=== PATIENT | female | born 1960 | race Caucasian/White ===

== ENCOUNTER 2022-09-07 13:35 | Outpatient (CLI) | payer OTHER, SELFPAY ==
--- NOTE | 2022-09-07 17:04 | WPDPFTINT ---
PFT Procedure Performed PFT Procedure Performed Plethysmography (Lung Vol) Diffusing Cap (DLCO) Flow Vol Loop Spirometry w/o Bronchodil PFT Interpretation This is a pulmonary function test with spirometry, plethysmography and diffusing capacity. The test was performed and results interpreted in accordance with the 2019 and 2005 ATS/ERS Task Force guidelines respectively using the Global Lung Function Initiative-2012 reference equations. Patient demonstrated good effort and cooperation. Reproducibility criteria were met. The quality of the spirometry maneuver was Grade A. Findings: Spirometry: The contour the inspiratory and expiratory flow tracing are normal. The FVC is 3.21 L, 99% predicted. The FEV1 is 2.28 L, 89% predicted. The FEV1: FVC ratio 71%. Plethysmography: The total lung capacity is 6.73 L, 129% predicted. The functional residual capacity is 4.14 L, 141% predicted. The residual volume is 2.88 L, 140% predicted. The residual volume: Total lung capacity ratio is 43%. Diffusing capacity: The diffusing capacity unadjusted for hemoglobin and carboxyhemoglobin is 17.7, 81% predicted. Diffusing capacity adjusted for alveolar volume is 3.26, 74% predicted. Impression: The spirometry is normal without evidence of an obstructive abnormality. The total lung capacity, functional residual capacity and residual volume are increased with a normal residual volume:Total lung capacity ratio suggesting large lungs. The diffusing capacity is normal. There are no prior studies for comparison
== END 2022-09-07 13:36 | disposition home or self-care (01) ==
LOC: ANHPFT 13:36
PROVIDERS: PCP Internal Medicine; Visit Provider Internal Medicine Pulmonary Disease
DX: R06.09 Other forms of dyspnea (principal); T78.40XA Allergy, unspecified, initial encounter; D89.9 Disorder involving the immune mechanism, unspecified; R05.9 Cough, unspecified
CPT/HCPCS: 94375; 94726; 94729

== ENCOUNTER 2022-10-11 19:24 | Emergency (ER) | payer OTHER, SELFPAY ==
[2022-10-11 19:30] VITALS: BP 126/81; PULSE 75; RESP 14; TEMP 37.5; O2SAT 92
--- NOTE | 2022-10-11 19:31 | ECG_ITS ---
Measurements Intervals [place] Rate: 104 P: 56 VA: 148 QRS: -34 QRSD: 89 T: 37 QT: 329 QTc: 434 Interpretive Statements SINUS TACHYCARDIA LEFT AXIS DEVIATION BORDERLINE ST-T WAVE ABNORMALITY- INFERIOR LEADS BASELINE ARTIFACT- I, III, AVR BORDERLINE ECG NO PREVIOUS ECG AVAILABLE FOR COMPARISON Electronically Signed On 10-11-2022 21:15:58 CDT by Dilshad Hadley D.O.
--- NOTE | 2022-10-11 21:25 | PC.NURSE ---
Patient asked television writer to recheck her temperature. Patient temperature was 99.1. Patient decided she wants to leave and not wait to be seen. Patient alert and ambulatory out ED exit.
== END 2022-10-11 21:44 | disposition left against medical advice (07) ==
LOC: ANHED 21:39
PROVIDERS: Emergency Provider Emergency Medicine; PCP Internal Medicine
DX: R50.9 Fever, unspecified (principal)
CPT/HCPCS: 93005; 99199